=== PATIENT | female | born 1995 | race Caucasian/White ===

== ENCOUNTER → 2023-05-20 09:19 | Outpatient (BNVA) | payer OTHER, SELFPAY | PROVIDERS: Family Provider Family Medicine; Visit Provider Nurse Practitioner Family | DX: R55 Syncope and collapse (principal); R00.2 Palpitations; R53.83 Other fatigue | CPT/HCPCS: 93005 ==

== ENCOUNTER → 2023-05-20 10:07 | Outpatient (BNVA) | payer OTHER, SELFPAY | PROVIDERS: Family Provider Family Medicine; Visit Provider Nurse Practitioner Family | DX: R55 Syncope and collapse (principal) | CPT/HCPCS: 85025 ==